=== PATIENT | male | born 1995 | race Caucasian/White ===

== ENCOUNTER 2017-07-21 00:48 | Emergency (ER) | payer SELFPAY ==
[2017-07-21 00:51] VITALS: BP 165/95
[2017-07-21] MEDS ORDERED: WATER FOR INJ,STERILE 20 ML 20 ML ONE (01:17)
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
== END 2017-07-21 02:13 | disposition home or self-care (01) ==
LOC: ER 02:06
DX: Z76.89 Persons encountering health services in other specified circumstances (principal)
CPT/HCPCS: 99283